=== PATIENT | female | born 1965 | race Caucasian/White ===

== ENCOUNTER 2021-12-23 16:41 | Outpatient (REF) | payer OTHER, SELFPAY ==
[2021-12-23 15:54] LABS: ALT 19 U/L (14-59); AST 20 U/L (15-37); Albumin 3.7 g/dL (3.4-5.0); Alkaline Phosphatase 50 U/L (46-116); Anion Gap 9.9 mmol/L (3-11); BUN 20 mg/dL (7-18); Bilirubin, Total 0.6 mg/dL (0.2-1.0); CO2 25.1 mmol/L (21.0-32.0); CREATININE 0.8 mg/dL (0.55-1.02); Calculated LDL 132 mg/dL (<100); Chloride 106 mmol/L (98-107); Cholesterol 203 mg/dL (<200); Glucose 100 mg/dL (74-106); HDL Cholesterol 57 mg/dL (40-60); Potassium 4.2 mmol/L (3.5-5.1); Sodium 141 mmol/L (136-145); Triglyceride 71 mg/dL (<150)
[2021-12-23 16:29] LABS: HCT 40.4 % (36.0-46.0); HGB 13.3 g/dL (11.2-15.7); MCH 30.6 pg (27.0-33.0); MCHC 32.9 % (32.0-36.0); MCV 93 fL (80-95); MPV 10.9 fL (8.0-11.0); Platelet Count 251 10^3/uL (130-400); RBC 4.35 10^6/uL (3.93-5.22); RDW 12.5 % (11.7-14.6); WBC 15.13 10^3/uL (4.4-10.8)
== END 2021-12-23 16:42 | disposition home or self-care (01) ==
LOC: NCHCN 16:41
PROVIDERS: PCP Nurse Practitioner; Visit Provider Nurse Practitioner Family
DX: Z00.00 Encounter for general adult medical examination without abnormal findings (principal); Z13.220 Encounter for screening for lipoid disorders
CPT/HCPCS: 80053; 80061; 84153; 85027

== ENCOUNTER 2022-01-05 10:50 | Outpatient (REF) | payer OTHER, SELFPAY ==
[2022-01-05 15:58] LABS: Abs Immature Grans 0.03 10^3/uL (0.0-0.06); Absolute Basophil Count 0.06 10^3/uL (0.0-0.2); Absolute Lymphocyte Count 2.88 10^3/uL (1.2-3.4); Absolute Monocyte Count 0.67 10^3/uL (0.1-0.8); Absolute Neutrophil Count 6.03 10^3/uL (1.2-6.7); Basophils % 0.6; HCT 40.8 % (36.0-46.0); HGB 13.6 g/dL (11.2-15.7); Immature Grans % 0.3; Lymphocytes % 29.5; MCH 30.3 pg (27.0-33.0); MCHC 33.3 % (32.0-36.0); MCV 91 fL (80-95); Monocytes % 6.9; Neutrophils % 61.7; Platelet Count 257 10^3/uL (130-400); RBC 4.49 10^6/uL (3.93-5.22); RDW 12.4 % (11.7-14.6); RDW-SD 41.2 fL; WBC 9.77 10^3/uL (4.4-10.8)
== END 2022-01-05 10:51 | disposition home or self-care (01) ==
LOC: NCHCN 10:50
PROVIDERS: PCP Nurse Practitioner; Visit Provider Nurse Practitioner Family
DX: D72.829 Elevated white blood cell count, unspecified (principal)
CPT/HCPCS: 85025

== ENCOUNTER 2022-09-29 09:53 | Day surgery (SDC) | payer OTHER, SELFPAY ==
--- NOTE | 2022-09-28 16:03 | PDOC.DSDIS_ITS ---
Date of service: 09/29/22 Time of Service: 13:25 Discharge Plan Disposition Patient Disposition: Home Condition: Good Discharge Details Reason For Visit: colon scope Attending Provider: Vivien Linn Primary Care Provider: Morena Rushing Home Meds and New Rx's Prescriptions: Continued fluticasone propionate [Flovent HFA] 12 GM HFA aerosol inhaler 110 mcg Inhalation BID Patient Comments: 06/08/15 Pt states using only PRN. PG PCP MED LIST SHOWS 110MCG, 2INH BID.HE Advil PM 200-38 mg tablet 1 cap PO QHS Patient Comments: pt states she is no longer taking this levalbuterol HCl [Xopenex] 0.63 MG/3 ML solution for nebulization 2 puff Inhalation PRN PRN Patient Comments: Patient states she doesn't take Xopenex any more. albuterol sulfate [Proventil HFA] 6.7 GM HFA aerosol inhaler 6.7 g Inhalation PRN PRN Discontinued bisacodyl [Dulcolax (bisacodyl)] 5 mg tablet,delayed release (DR/EC) 5 mg PO ONCE Qty: 4 0RF Rx Instructions: Take per colonoscopy instructions provided by ordering providers office polyethylene glycol 3350 17 gram/dose powder 17 g PO ONCE Qty: 238 0RF Rx Instructions: Take per colonoscopy instructions provided by ordering providers office Discharge Instructions Additional Instructions: DSU Colonoscopy Post- Op Instructions Instructions for Everyone who is given Anesthesia: For your safety, please do the following for the next twenty-four (24) hours: *Do Not operate a motor vehicle (car, truck, motorcycle, etc.) *Do Not drink alcoholic beverages or use any recreational drugs for the first 24 hours or while taking pain medications. The medications in your body may have a reaction that can be dangerous. *Do Not make any important decisions or sign any important papers. Findings: Polyps x3 I. hemorrhoids banded x1 Follow up: repeat scope in 3 yrs time 1. No lifting over 20 pounds or strenuous activity for the first 24 hours after your procedure. After 24 hours there are no restrictions on your activity but you may feel fatigued for a few days. 2. After you arrive home you may have a light meal and return to your normal diet as you can tolerate it without feeling sick to your stomach. 3. You may have a bloated, gaseous feeling in your belly (abdomen) after a colonoscopy. Passing gas and belching will help. Walking or lying down on your left side with your knees flexed may relieve the discomfort. Call the office at [phone] (Office) or [phone] (Hospital) right away if you notice any of the following: a.Vomiting of blood or ?coffee ground stools?. b.Rectal bleeding 1Tbsp, blood clots or continuous bleeding. c.Severe belly (abdominal) pain. d.A hard distended belly (abdomen) and an inability to pass gas. 4. Please don?t expect to have a normal BM (bowel movement) for 2-3 days after your procedure. 5. If there are questions regarding the findings of your procedure, please contact your doctor 6. If you are unable to contact your doctor with a problem, contact the hospital at [phone]. 7. Continue all your regular medications unless directed otherwise. Rubber Band Ligation for Hemorrhoids: What to Expect at Home Your Recovery In this procedure, a hemorrhoid was tied off at its base with rubber bands. You may feel pain and have a feeling of fullness in your lower belly. Or you may feel as if you need to have a bowel movement. This usually goes away within several days after the surgery. You may need pain medicine during this time. You may have a small amount of bleeding from your anus about 7 to 10 days after surgery, when your hemorrhoid falls off. This is normal. Some people are able to return to regular activities in 24 hours. Others may need 2 to 3 days of rest. You will need to avoid heavy lifting and straining with bowel movements for the next 5-7 days. This care sheet gives you a general idea about how long it will take for you to recover. But each person recovers at a different pace. Follow the steps below to get better as quickly as possible. How can you care for yourself at home? Activity ? Rest when you feel tired. Getting enough sleep will help you recover. ? Try to walk each day. Start by walking a little more than you did the day before. Bit by bit, increase the amount you walk. Walking boosts blood flow and helps prevent pneumonia and constipation. ? Avoid strenuous activities, such as bicycle riding, jogging, weight lifting, or aerobic exercise, until your doctor says it is okay. ? For 2 to 3 weeks, avoid lifting anything that would make you strain. This may include heavy grocery bags and milk containers, a heavy briefcase or backpack, cat litter or dog food bags, a vacuum kiln cleaner, or a child. ? You may take showers and baths as usual. Pat your anal area dry when you are done. ? Ask your doctor when you can drive again. ? You may need to take a few days to a few weeks off work. It depends on the procedure you had, the type of work you do, and how you feel. Diet ? You can eat your normal diet. If your stomach is upset, try eating bland, low-fat foods like plain rice, broiled chicken, toast, and yogurt. ? Drink plenty of fluids (unless your doctor has told you not to). ? It is important to eat high-fibre foods after your procedure. This will make it easier to have bowel movements and keep your hemorrhoids from coming back. ? You may notice that your bowel movements are not regular right after your procedure. This is common. Try to avoid constipation and straining with bowel movements. You may want to take a fibre supplement every day. If you have not had a bowel movement after a couple of days, ask your doctor about taking a mild laxative. Pain Control ? Your doctor will tell you if and when you can restart your medicines. He or she will also give you instructions about taking any new medicines. ? If you take aspirin or some other blood thinner, ask your doctor if and when to start taking it again. ? Take pain medicines ?as directed: Take tylenol 500 mg by mouth with food every 4 hours as needed for pain. Or ibuprofen 600 mg by mouth with food every 6 hours as needed for pain.? Do not take tylenol if you have a history of heavy drinking, hepatits C or liver problems.? Do not take ibuprofen if you have a history of stomach ulcers/problems, bleeding problem or kidney issues. If you think your pain medicine is making you sick to your stomach: o?? Take your medicine after meals (unless your doctor has told you not to). ? Sit in 5 to 10 inches palin of warm water (sitz bath) for 15 to 20 minutes 3 times a day and after bowel movements. Then pat the area dry. Do this as long as you have pain in your anal area. ? Put ice or a cold pack on the area for 10 to 20 minutes at a time. Try to do this every 1 to 2 hours for the next 3 days (when you are awake). Put a thin cloth between the ice and your skin. ? Support your feet with a small step stool when you sit on the toilet. This helps flex your hips and places your pelvis in a squatting position. This can make bowel movements easier after your procedure. ? When should you call for help? Call?911?anytime you think you may need emergency care. For example, call if: ? You passed out (lost consciousness). ? You are short of breath. Call your doctor or nurse advice line now?or seek immediate medical care if: ? You cannot pass stools or gas. ? You are sick to your stomach and cannot drink fluids. ? Bright red blood has soaked through the bandage. ? You have signs of a blood clot in your leg (called a deep vein thr ombosis), such as: o?? Pain in the calf, back of your knee, thigh, or groin. o?? Redness and swelling in your leg or groin. ? You have signs of infection, such as: o?? Increased pain, swelling, warmth, or redness. o?? Red streaks leading from the area. o?? Pus draining from the area. o?? A fever. I understand the above instructions and have no questions. Signature of Patient or Adult Escort Name of Responsible Adult Escort Signature of Nurse Date/Time Activity:: see above Diet:: see above Discharge Orders Discharge Orders: Discharge Order (Routine); Ordered 09/29/22 Ordered By: Vivien Linn DS: Diagnosis Discharge Diagnosis (1) COPD, mild: (2) Tobacco use: (3) Tubulovillous adenoma: Asessment and Plan: The patient is seen and examined after their colonoscopy.? The patient has been able to pass gas.? They are not having abdominal pain.? They have been able to tolerate liquids and a snack.? They do not have any nausea or vomiting.? They are not having any chest pain or shortness of breath.??? They are not having any rectal bleeding. Their vital signs have been stable-see nursing notes. We discussed findings during their colonoscopy, and any biopsies that were done/polyps that were removed. The patient will be sent a letter with any biopsy results, and when to repeat the colonoscopy.-see discharge instructions. Patient was given explicit instructions to follow-up regarding colonoscopy-refer to discharge instructions.? We reviewed resumption of medications. Patient verbalized understanding and discharged in stable and satisfactory condition- See nursing notes. -see post hemorrhoid orders
--- NOTE | 2022-09-28 16:05 | W.COLOREPORT ---
Date of service: 09/29/22 Time of Service: 14:00 Colonoscopy Report Date of procedure: 09/29/22 Pre-op diagnosis general: Villous adenomatous polyps Surgeon: Vivien Linn Anesthesia Type: General:No Airway Estimated blood loss (mL): 1 Complications: None Disposition: same day Prep: Miralax/Dulcolax Retraction Time: 25 Procedure Description: After informed consent was obtained the patient was taken to the procedure room and placed in a left decubitous position. Monitors were applied and a time out was done. The patients name, date of , procedure, allergies to medications and metal in their body was reviewed. The patient was then sedated. Once sedated and comfortable a rectal exam was done. External exam: hemorrhoid at 6oclock position. Internal exam revealed a normal sphincter tone and no palpable masses. The scope was then introduced and retrofelexed. Grade II x1 column internal hemorrhoids were identified at the 3 ocolock position. The scope was then advanced to the cecum w/out difficulty. The TI and appendiceal orifice were identified. The prep was BBPS I in right colon and II in transverse and sigmoid for a total of 5. The colon is irrigated w/ 2 liters of saline. No masses identified, but Lesions <5mm may have been missed. She has a .75cm peduculated polyp in the cecum, This is removed w/ a cold snare. The scope was then slowly retracted over 26 minutes back into the rectum. No AVM's or diverticula are identiefied. She has a .5cm polyp at 20cm that is removed w/ a cold snare. All specimen is retrieved and no bleeding is noted. A band is placed on the internal hemorrhoid, No bleeding is noted. The scope was removed and the patient was woken up and taken back to Same day surgery in stable condition. The patient tolerated the procedure well and there were no immediate complications. Follow up: The patient should follow up in 3 years unless they develop changes in bowel habits or other new gastrointestinal complaints.
[2022-09-29] MEDS: Lactated Ringers 1,000 ML 80 ML IV (10:20)
[2022-09-29 10:26] VITALS: BP 124/61; PULSE 96; RESP 17; TEMP 36.9; O2SAT 100
[2022-09-29 11:47] VITALS: BMI 19.6
--- NOTE | 2022-09-29 11:47 | ANES.PREOP_ITS ---
General Info Date of Service Date Performed: 09/29/22 Height: 5 ft 4 in Weight: 52 kg Body Mass Index (BMI): 19.6 Surgical Procedure: Operation Date: 09/29/22 11:10 Proposed Procedure Side Surgeon p Colonoscopy Vivien Linn DO s Possible Internal Hemorrhoid Banding Vivien Linn DO Meds Allergies and Home Medications Allergies Allergy/AdvReac Type Severity Reaction Status Date / Time soap Allergy Mild ivory Verified 09/29/22 10:20 soap mild Home Medication Medication Instructions Recorded fluticasone propionate 110 110 mcg inhalation BID 12/13/13 mcg/actuation HFA aerosol inhaler (Flovent HFA) levalbuterol HCl 0.63 mg/3 mL 2 puff inhalation PRN PRN 06/08/15 solution for nebulization (Xopenex) albuterol sulfate 90 mcg/actuation 6.7 g inhalation PRN PRN 12/17/16 aerosol inhaler (Proventil HFA) ibuprofen-diphenhydramine citrate 1 cap PO QHS 04/06/20 200 mg-38 mg tablet (Advil PM) Current Visit Medications: Current Medications Generic Name Dose Route Start Last Admin Trade Name Freq PRN Reason Stop Dose Admin Hyoscyamine Sulfate 0.125 mg 09/29/22 04:02 Hyoscyamine 0.125 Mg Sl/Oral/Chew SL 10/29/22 04:01 DIRECTED PRN Ringer's Solution 1,000 mls @ 80 mls/hr 09/29/22 06:00 09/29/22 10:20 IV 10/28/22 23:59 80 mls/hr INFUSION ERIK Administration IV Miscellaneous Supplies 1 each 09/29/22 06:00 Iv Access IV 10/28/22 23:59 DIRECTED ERIK Ondansetron HCl 4 mg 09/29/22 04:02 Ondansetron 4 Mg/2 Ml Vial IVP 10/29/22 04:01 Q4H PRN PRN Nausea / Vomiting Sodium Chloride 0 ml 09/29/22 06:00 Normal Saline Flush 10 Ml Syr IV 10/28/22 23:59 PRN PRN Sodium Chloride 0 ml 09/29/22 06:00 Normal Saline 10 Ml Vial IJ 10/28/22 23:59 DIRECTED PRN Sterile Water 0 ml 09/29/22 06:00 Water,Injection,Sterile 10 Ml Vial IJ 10/28/22 23:59 DIRECTED PRN [facility] Active Problems Active Problems: Problem Status Onset Code Hoarseness R49.0 Medical History Medical History Bunion COPD, mild Depression Foot pain Onychomycosis Sexual dysfunction Tobacco use Tubular adenoma (~06/08/15) Tubulovillous adenoma (~06/08/15) Surgical History Surgical History History of colonoscopy (~06/08/15) History of hysterectomy Tobacco Smoking/Tobacco Use Status: Current every day Tobacco Type: cigarettes Alcohol Alcohol Intake: never Substance Use Substance use: Never Substance use type: does not use Vital Signs and Lab Results Vital Signs Most Recent Vital Signs in EMR: Most Recent Vital Signs Temp Pulse Resp BP Pulse Ox 36.9 C 96 H 17 124/61 100 09/29/22 10:26 09/29/22 10:26 09/29/22 10:26 09/29/22 10:26 09/29/22 10:26 Lab Results Blood Type / Crossmatch: No Data to Display Complete Blood Count: No Data to Display Complete Metabolic Panel: No Data to Display Liver Function Panel: No Data to Display Coagulation Panel: No Data to Display Cardiac Panel: No Data to Display Arterial Blood Gas: No Data to Display Venous Blood Gas: No Data to Display Pancreas Panel: No Data to Display Thyroid Panel: No Data to Display Infectious Disease: No Data to Display Blood Cultures: No Data to Display Toxicology Panel: No Data to Display Imaging and Studies Imaging and Studies Study information below may be from another EMR and interpreted by another provider. Please see original notes in EMR for more complete details. Pulmonary Function Summary: Pulmonary Function Test PATIENT NAME: YAAKOV SNOWDEN #: [id number] ADMITTING PROVIDER: MIKE MIRANDA MD #: [id number] PRIMARY CARE PROVIDER: MICHELLE ALVARADO NP DATE OF ADMIT: 06/04/17 : 1965 PULMONARY FUNCTION TEST REPORT DATE OF SERVICE June 04, 2017 REQUESTING PROVIDER Michelle Alvarado, N.P. INTERPRETATION OF STUDY Spirometry shows mild obstructive airways disease with no significant bronchodilator response. LUNG VOLUMES - Lung volumes show no evidence of restriction. DIFFUSION CAPACITY- Normal. AIRWAY RESISTANCE - Normal. IMPRESSION Mild obstructive airways disease with no significant bronchodilator response. Clinical correlation recommended. When this study was compared to previous one from October 24, 2011, the patient has a 190 cc decline in FVC, FEV1 however, had declined by 440 cc. Mili Miranda M.D. LEN/asif T - 06/06/2017 Anesthesia Assessment and Plan Anesthesia History Personal History: No History of Anesthesia Complications Family History: No Family History of Anesthesia Complications Exercise Tolerance Exercise Tolerance: Metabolic Equivalents>4 Pertinent Negatives Pertinent Negatives: No Symptoms of GERD, No Major Cardiovascular Symptoms or Complaints and No History of CVA/TIA Cardiac & Pulmonary Exam Cardiac Exam: Normal S1/S2 Heart Sounds Pulmonary Exam: Clear Bilateral Breath Sounds Implantable Cardiac Device Does patient have a Pacemaker or an ICD?: No Airway Exam Known Difficult Airway: No Mallampati Class: 2 Mouth Opening: Normal (> 3cm) Thyromental Distance: Greater than 3 cm Neck Range of Motion: Full ROM Neck Circumference: Normal Teeth Condition: Normal Dentition ASA Classification ASA Score: ASA 2 Emergency Case?: No NPO Status NPO Status: NPO Clears >2 hours, Solids >8 hours Anesthesia Plan Resuscitation Status: Full Code Anesthesia Technique: General Anesthesia Airway Planned: Natural Airway Monitors Used: Standard Monitors
--- NOTE | 2022-09-29 12:50 | BOWEL_PTH ---
PATIENT: Martha Chapa LOC: [facility] U#:[id number] AGE/SX: 57/F ROOM: RE09/29/[address]: Vivien Linn : 1965 BED: DIS: 09/29/2022 SPEC #: [id number] RECD: 09/29/22 13:32 STATUS: KATEY RE #: [id number] JACINTO: 09/29/22 12:[address]: Vivien Linn DEPT: Surgical Specimen RECD BY: Destiny Bueno ENTERED: 09/29/22 13:32 SP TYPE: Bowel OTHR DR: CHRISTIN MONTES Tissues: 1 - BIOPSY BOWEL 2 - BIOPSY BOWEL Procedures: GROSS AND MICRO LEVEL 4 Comments: [id number]
[2022-09-29 13:19] VITALS: BP 102/79; PULSE 69; RESP 16; TEMP 36.5; O2SAT 99
[2022-09-29] MEDS: Ketorolac 15 MG/ML VIAL IVP (13:37)
[2022-09-29] MEDS: Acetaminophen 500 MG TAB 1000 MG PO (13:38)
[2022-09-29 13:50] VITALS: BP 130/80; PULSE 90; RESP 18; TEMP 36.6; O2SAT 98
[2022-09-29] MEDS: MORPHine 10 MG/ML VIAL 2 MG IVP (14:27)
[2022-09-29 14:30] VITALS: BP 140/88; PULSE 90; RESP 18; TEMP 36.5; O2SAT 99
--- NOTE | 2022-09-29 15:28 | W.ANESPOSTOP ---
Postoperative Evaluation Date, Time and Location Date Performed: 09/29/22 Time Performed: 15:28 Patient Location: Day Surgery Unit Vital Signs Most Recent Imported Vital Signs: Most Recent Vital Signs Temp Pulse Resp BP Pulse Ox 36.5 C 69 16 102/79 99 09/29/22 13:19 09/29/22 13:19 09/29/22 13:19 09/29/22 13:19 09/29/22 13:19 Pain Score Most Recent Pain Score: Most Recent Pain Score Pain Level 6 09/29/22 13:19 Assessment Mental Status: Awake (Alert & Oriented to Patient Baseline) Airway and Respiratory Function: Patent airway with normal (patient baseline) respiratory exam Cardiovascular Function: Hemodynamically Stable Hydration Status: Adequately Hydrated Nausea & Vomiting: No Nausea or Vomiting Pain: Pain is Moderate or Severe Postoperative Pain Management: Pain being addressed with medication Peripheral Nerve Block: Patient did not receive a nerve block
== END 2022-09-29 15:30 | disposition home or self-care (01) ==
PROVIDERS: PCP Nurse Practitioner Family; Visit Provider Surgery
PROC: 0DJD8ZZ Inspection of Lower Intestinal Tract, Via Natural or Artificial Opening Endoscopic (ICD-10-PCS; CPT 45378; principal; 2022-09-29 11:00)
DX: Z12.11 Encounter for screening for malignant neoplasm of colon (principal); Z86.010 Personal history of colon polyps; K64.1 Second degree hemorrhoids; D12.0 Benign neoplasm of cecum; K63.5 Polyp of colon
CPT/HCPCS: 45385; 88305; J1885; J2270

== ENCOUNTER 2024-04-28 02:23 | Outpatient (CLI) | payer MEDICAID, SELFPAY ==
--- NOTE | 2024-04-28 | DI.MRI_ITS ---
Exam(s) MR UPPER JOINT RT WO EXAM: MR UPPER JOINT RT WO CLINICAL HISTORY: Pain in Rt wrist, M25.531. TECHNIQUE: Multiplanar multisequence MRI was performed. COMPARISON: None. FINDINGS: BONES: There is no fracture or contusion pattern. Circumscribed cystic appearing lesion in the dist al radius measuring 0.6 x 1.0 by 6 cm. It appears mildly expansile shows endosteal scalloping. It m ay represent an intraosseous ganglion or simple bone cyst. Other small cysts are noted in the lunate, triquetrum, capitate as well as base of the 1st metacarpal . JOINTS: The radiocarpal joint is unremarkable. Slight dorsal tilt donate. There are degenerative rowe ges at the 1st carpal metacarpal joint. TENDONS: Flexors: Unremarkable. Extensors: Unremarkable. MUSCLES: Unremarkable. MEDIAN NERVE: Unremarkable on this noncontrast examination. No abnormal signal within the carpal tu nnel. SOFT TISSUES: There is mild postsurgical scarring at the volar soft tissues. TRIANGULAR FIBROCARTILAGE: Unremarkable. IMPRESSION: No abnormal signal within the carpal terminal tunnel or median nerve status post surgery. Elongated c ystic lesion in the distal radius measuring 6 cm in length. Findings could represent intra osseous ga nglion versus simple bone cyst. Comparison with plain films recommended. Multiple other benign-appear ing cysts in the carpal bones. DATA REPOSITORY:
--- NOTE | 2024-04-28 | DI.MRI_ITS ---
Exam(s) MR UPPER JOINT LT WO EXAM: MR UPPER JOINT LT WO CLINICAL HISTORY: Pain in lt Wrist, M25.532. TECHNIQUE: Multiplanar multisequence MRI was performed. COMPARISON: None. FINDINGS: BONES: There is no fracture or contusion pattern. JOINTS: The radiocarpal joint is unremarkable. Moderate degenerative changes at the 1st carpal metac arpal joint and scaphoid trapezium trapezoid joints. Multiple small the cystic lesions are seen, in the lunate, ulnar styloid, capitate and base of 1st metacarpal. There is fluid at the piece of form triquetrum joint. TENDONS: Flexors: Unremarkable. Extensors: Unremarkable. MUSCLES: Unremarkable. MEDIAN NERVE: Unremarkable on this noncontrast examination. No abnormal high signal within carpal t unnel. SOFT TISSUES: Unremarkable. LIGAMENTS: Unremarkable. TRIANGULAR FIBROCARTILAGE: Unremarkable. IMPRESSION: Multiple areas of cystic bony erosions could be degenerative or could be related to inflammatory arth ritis. Correlation with plain films recommended. DATA REPOSITORY:
--- NOTE | 2024-04-29 04:21 | DI.VRAD_ITS ---
PROCEDURE INFORMATION: Exam: MR Right Upper Extremity Joint Without Contrast; Wrist Exam date and time: 04/28/2024 12:01 PM Age: 58 years old Clinical indication: Pain; Wrist; Right; Prior surgery; Surgery date: 6+ months; Surgery type: Carpal tunnel \T\ trigger release done 6+ month ago TECHNIQUE: Imaging protocol: Magnetic resonance imaging of the right upper extremity without contrast. Exam focused on the wrist. COMPARISON: No relevant prior studies available. FINDINGS: Bones/joints: There is a large elongated T2 hyperintense (fluid-bright) cystic lesion in the distal radius which measures up to 0.6 cm x 1 cm in the axial plane and extends over a sagittal length of 5.7 cm. This lesion is slightly expansile, with endosteal scalloping. Additional intraosseous cysts are identified in the lunate, triquetrum, capitate, and base of the 1st metacarpal. There are changes of mild osteoarthritis in the 1st carpometacarpal and triscaphe joints. Mild patchy subchondral bone marrow edema is noted in the distal pole of the scaphoid and along the distal articular surface of the capitate. There is no radiocarpal, midcarpal, or distal radioulnar joint effusion. Scapholunate ligament: Unremarkable. No tear. Lunotriquetral ligament: Unremarkable. No tear. Triangular fibrocartilage complex: Unremarkable. No tear. Flexor compartment tendons: Intact and unremarkable in signal. No tear. There is mild flexor carpi radialis tenosynovitis. Extensor compartment tendons: Intact. No tear. There is mild extensor carpi ulnaris tendinosis with minimal tenosynovitis. Soft tissues: Tiny, approximately 2 mm ganglion adjacent to the ulnar styloid (series 4001, image 25). IMPRESSION: 1. Mild flexor carpi radialis tenosynovitis in the right wrist. 2. Mild extensor carpi ulnaris tendinosis with minimal tenosynovitis. 3. Multiple intraosseous cystic foci in the right wrist, including a large elongated slightly expansile cystic structure in the distal radius. Intraosseous ganglia and subchondral cysts could have this appearance. 4. Additional incidental findings as above. Dictated and Authenticated by: Hoa Green MD. Ordering:STEPHANIE Berg MD
--- NOTE | 2024-04-29 04:33 | DI.VRAD_ITS ---
PROCEDURE INFORMATION: Exam: MR Left Upper Extremity Joint Without Contrast; Wrist Exam date and time: 04/28/2024 12:22 PM Age: 58 years old Clinical indication: Pain; Wrist; Left; Prior surgery; Surgery date: 6+ months; Surgery type: Three different surgeries TECHNIQUE: Imaging protocol: Magnetic resonance imaging of the left upper extremity without contrast. Exam focused on the wrist. COMPARISON: No relevant prior studies available. FINDINGS: Bones/joints: There are changes of mild osteoarthritis in the 1st carpometacarpal and triscaphe joints. Small patchy foci of subchondral bone marrow edema and tiny subcortical cystic foci are noted in multiple carpal bones. There is a small cystic erosion in the lunate (series 7001, image 30). A tiny cystic erosion is noted in the ulnar styloid (series 4001, image 14). A pisotriquetral joint effusion is noted. There is no radiocarpal, midcarpal, or distal radioulnar joint effusion. Scapholunate ligament: Unremarkable. No tear. Lunotriquetral ligament: Unremarkable. No tear. Triangular fibrocartilage complex: Unremarkable. No tear. Flexor compartment tendons: Intact and unremarkable in signal. No tear. Extensor compartment tendons: Intact and unremarkable in signal. Minimal 2nd extensor compartment tenosynovitis. Soft tissues: Unremarkable. IMPRESSION: 1. 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 2. Small patchy foci of subchondral bone marrow edema and subcortical cysts throughout the left wrist, with cystic erosions in the lunate and ulnar styloid. While some of these may be degenerative, an inflammatory arthropathy could also contribute to this appearance. 3. Minimal 2nd extensor compartment tenosynovitis. Dictated and Authenticated by: Hoa Green MD. Ordering:STEPHANIE Berg MD
== END 2024-04-28 02:43 ==
LOC: DI 02:23
PROVIDERS: PCP Nurse Practitioner Family; Visit Provider Nurse Practitioner Family
DX: M19.032 Primary osteoarthritis, left wrist (principal); M19.031 Primary osteoarthritis, right wrist
CPT/HCPCS: 73221